=== PATIENT | female | born 1975 | race Caucasian/White ===

== ENCOUNTER 2016-04-10 19:23 | Emergency (ER) | payer OTHER ==
[~2016-04-10] VITALS: Ht 152.4 cm; Wt 61.0 kg
[2016-04-10 19:26] VITALS: BP 138/90; PULSE 76; RESP 18; TEMP 98.1; O2SAT 98
--- NOTE | 2016-04-10 20:05 | PD ---
HPI Chief Complaint: Cold / Flu Symptoms Time Seen by Provider: 20:00 Travel History International Travel<30 days: No Contact w/Intl Traveler<30days: No Traveled to known affect area: No History of Present Illness HPI This is a 41-year-old female with no significant past medical history presents for evaluation of a cough. Symptoms have been lingering since March 25. The cough is primarily dry but occasionally she is able to expectorate phlegm. She has had no fevers, chills, nasal congestion, sinus pressure, ear pain. She does note that she recently traveled here by airplane from [facility] to visit her mother. She has been using [id number] cough and cold medications but symptoms persist. She notes that she had a similar cough in January 2016. She has no other complaints at this time. [facility] Past Medical History Narrative Medical hypothyroidism ?: Not LMP: LAST WEEK Social History Alcohol Use: No Tobacco Use: No Allergies-Medications (Allergen,Severity, Reaction): Coded Allergies: Keflex (Verified Allergy, Intermediate, DIARRHEA, 04/10/16) Reported Meds & Prescriptions Reported Meds & Active Scripts Active Review of Systems Except as stated in HPI: all other systems reviewed are Neg Physical Exam Narrative GENERAL: Well-developed well-nourished female in no acute distress SKIN: Warm and dry. HEAD: Atraumatic. Normocephalic. EYES: Pupils equal and round. No scleral icterus. No injection or drainage. ENT: No nasal bleeding or discharge. Mucous membranes pink and moist. No oral pharyngeal erythema or exudate. NECK: Trachea midline. No JVD. No lymphadenopathy. CARDIOVASCULAR: Regular rate and rhythm. No murmur appreciated. RESPIRATORY: No accessory muscle use. There is slight wheezing bilaterally. No crackles. Data Data Last Documented VS Vital Signs Date Time Temp Pulse Resp B/P Pulse Ox O2 Delivery O2 Flow Rate FiO2 04/10/16 19:26 98.1 76 18 138/90 98 Orders Prednisone (Deltasone) (04/10/16 20:15) Albuterol-Ipratropium Neb (Duoneb Neb) (04/10/16 20:15) [facility] Medical Decision Making Medical Screen Exam Complete: Yes Emergency Medical Condition: Yes Medical Record Reviewed: Yes Differential Diagnosis Bronchitis, reactive airway disease, pneumonia, influenza, bronchiolitis Narrative Course This is a 41-year-old female who is had a cough for the past 2-3 weeks. Physical examination is reassuring. She does have slight wheezing bilaterally. There are no crackles, there is no tachypnea, hypoxia or tachycardia to suggest pneumonia. Plan is to treat the patient symptomatically with prednisone , Tessalon, albuterol inhaler. I did also offer the patient azithromycin primarily for the anti-inflammatory properties however the patient is declining. She is stable for discharge. Diagnosis Primary Impression: Bronchitis Additional Instructions: Medication as prescribed. Stay well hydrated and well-nourished. Follow-up with primary care as needed. Return for any emergent medical conditions. Med/Other Pt SpecificInfo: Prescription(s) given Disposition: 01 DISCHARGE HOME Condition: Stable Emanuel Bragg Apr 10, 2016 20:04
[2016-04-10] MEDS ORDERED: PRED20 PO (20:13)
[2016-04-10] MEDS ORDERED: ALBUAER3 INH (20:13)
[2016-04-10] MEDS ORDERED: BENZ100 PO (20:13)
[2016-04-10] MEDS ORDERED: RESP: ALBUTEROL 2.5 MG/IPRATROPIUM 0.5 MG NEB (SCH) INH ONE (20:15)
[2016-04-10] MEDS ORDERED: predniSONE 20 MG TAB PO ONE (20:15)
== END 2016-04-10 21:12 | disposition home or self-care (01) ==
LOC: NEPB 19:23
DX: J40 Bronchitis, not specified as acute or chronic (principal); E03.9 Hypothyroidism, unspecified
CPT/HCPCS: 94664; 99283; J7512